=== PATIENT | male | born 1970 | race Hispanic/Latino ===

== ENCOUNTER 2024-03-17 23:46 | Inpatient (IN) | payer OTHER ==
[~2024-03-17] VITALS: Ht 172.7 cm; Wt 80.7 kg
[2024-03-18] VITALS (8 sets, daily range): BP systolic 139–156; BP diastolic 80–88; PULSE 71–95; RESP 18–22; TEMP 98.3–99; O2SAT 96–97
[2024-03-18 00:05] LABS: BASOPHILS # (AUTO) 0.03 K/uL (0.00-0.20); BASOPHILS % (AUTO) 0.4 % (0.0-5.0); EOSINOPHILS # (AUTO) 0.04 K/uL (0.00-0.70); EOSINOPHILS % (AUTO) 0.5 % (0.0-8.0); IMMATURE GRANULOCYTE ABSOLUTE 0.03 K/uL (0-1); LYMPHOCYTES % (AUTO) 11.3 % (21.0-51.0); MEAN CORPUSCULAR HGB CONC 35.4 g/dL (32.0-36.0); MEAN CORPUSCULAR VOLUME 87.6 fL (79-99); MONOCYTES # (AUTO) 0.4 K/uL (0.1-1.0); MONOCYTES % (AUTO) 4.1 % (3.0-13.0); NEUTROPHILS # (AUTO) 7.2 K/uL (1.8-7.7); NEUTROPHILS % (AUTO) 83.3 % (40.0-77.0); PLATELET COUNT (AUTO) 189 K/uL (130-400); RED BLOOD CELL COUNT(AUTO) 4.68 MIL/uL (4.50-6.20); RED CELL DISTRIBUTION WIDTH 12.5 % (11.0-15.5); WHITE BLOOD COUNT (AUTO) 8.6 K/uL (4.8-10.8)
[2024-03-18 00:18] LABS: CREATININE 1.2 mg/dL (0.5-1.3); POTASSIUM 3.6 mmol/L (3.5-5.1)
[2024-03-18 00:48] LABS: APPEARANCE,URINE CLEAR (CLEAR); BILIRUBIN,URINE NEGATIVE (NEGATIVE); COLOR,URINE LIGHT-YELLOW (YELLOW); GLUCOSE, URINE (UA) >=1000 mg/dL (NEGATIVE); KETONES,URINE 5 mg/dL (NEGATIVE); LEUKOCYTE ESTERASE ,URINE NEGATIVE Leu/uL (NEGATIVE); NITRATE,URINE NEGATIVE (NEGATIVE); OCCULT BLOOD,URINE LARGE (NEGATIVE); PROTEIN,URINE 20 mg/dL (NEGATIVE); UROBILINOGEN,URINE 0.2 mg/dL (0.2-1.0)
[2024-03-18 00:53] LABS: ADD UA MICROSCOPIC YES
[2024-03-18 00:55] LABS: MUCUS,URINE RARE LPF (None Seen)
[2024-03-18] MEDS: ONDANSETRON 4MG INJ IVP STA ×2 (01:05→01:43)
[2024-03-18] MEDS: FAMOTIDINE 20MG VIAL IV STA (01:05)
[2024-03-18] MEDS: 0.9%NACL 1000ML 1,000 ML IV ONE (01:06)
[2024-03-18] MEDS: acetaMINOPHEN 500 MG TABLET PO STA (01:06)
[2024-03-18] MEDS: morPHINE 4 MG SYG IVP STA (01:43)
[2024-03-18] MEDS ORDERED: acetaMINOPHEN 650 MG SUPPOSITORY RC PRN (03:30)
[2024-03-18] MEDS ORDERED: hydroMORPHone 1 MG INJ IVP PRN (03:30)
[2024-03-18] MEDS: traMADol HCL 50 MG TABLET PO PRN (03:47)
[2024-03-18] MEDS: LACTATED RINGERS 1000ML 1,000 ML IV SCH (03:47)
[2024-03-18] MEDS ORDERED: hydrALAZine 20MG/ML VIAL IV PRN (06:30)
[2024-03-18] MEDS ORDERED: doCUSate SODIUM 100 MG CAP PO PRN (06:30)
[2024-03-18] MEDS: INSULIN humuLIN R 100 UNIT/ML 3ML SQ SCH (06:45)
[2024-03-18] MEDS ORDERED: ENOXAPARIN SODIUM 30 MG/0.3 ML SQ SCH (09:00)
[2024-03-18] MEDS: PANTOPRAZOLE 40 MG/VIAL IVP SCH (10:48)
[2024-03-18] MEDS: hydroMORPHone 0.5 MG SYG (0.5MG/0.5ML) IVP PRN (10:55)
[2024-03-18] MEDS: tamSULOsin HCL 0.4 MG CAP.ER.24H PO ONE (21:38)
[2024-03-18] MEDS ORDERED: LACTULOSE 20 GM/30 ML UDCUP PO PRN (22:00)
[2024-03-18] MEDS ORDERED: IOHEXOL-350 75 ML VIAL IV ONE (22:25)
[2024-03-19 04:00] VITALS: BP 140/81; PULSE 92; RESP 20; TEMP 98.6
[2024-03-19 04:22] LABS: BASOPHILS # (AUTO) 0.01 K/uL (0.00-0.20); BASOPHILS % (AUTO) 0.1 % (0.0-5.0); EOSINOPHILS # (AUTO) 0.03 K/uL (0.00-0.70); EOSINOPHILS % (AUTO) 0.4 % (0.0-8.0); IMMATURE GRANULOCYTE ABSOLUTE 0.03 K/uL (0-1); LYMPHOCYTES # (AUTO) 0.8 K/uL (1.0-4.8); LYMPHOCYTES % (AUTO) 10.9 % (21.0-51.0); MEAN CORPUSCULAR HEMOGLOBIN 30.5 pg (27.0-33.0); MEAN CORPUSCULAR HGB CONC 34.6 g/dL (32.0-36.0); MEAN CORPUSCULAR VOLUME 88.2 fL (79-99); MONOCYTES # (AUTO) 0.9 K/uL (0.1-1.0); MONOCYTES % (AUTO) 12.1 % (3.0-13.0); NEUTROPHILS # (AUTO) 5.7 K/uL (1.8-7.7); NEUTROPHILS % (AUTO) 76.1 % (40.0-77.0); PLATELET COUNT (AUTO) 161 K/uL (130-400); RED BLOOD CELL COUNT(AUTO) 4.42 MIL/uL (4.50-6.20); RED CELL DISTRIBUTION WIDTH 12.4 % (11.0-15.5); WHITE BLOOD COUNT (AUTO) 7.5 K/uL (4.8-10.8)
[2024-03-19 04:36] LABS: CREATININE 1.5 mg/dL (0.5-1.3); PHOSPHORUS 2.8 mg/dL (2.5-4.9); POTASSIUM 3.9 mmol/L (3.5-5.1)
[2024-03-19 05:28] LABS: HEMOGLOBIN A1C 8.2 % (4.0-6.0)
[2024-03-19 08:00] VITALS: O2SAT 97
[2024-03-19 08:24] VITALS: BP 129/84; PULSE 98; RESP 16; TEMP 98.9
[2024-03-19 11:57] VITALS: BP 143/93; PULSE 77; RESP 16; TEMP 99.3
[2024-03-19] MEDS ORDERED: TAMS-1 PO (13:39)
[2024-03-19] MEDS: acetaMINOPHEN 325 MG TAB PO PRN (16:01)
[2024-03-19 16:41] VITALS: BP 160/96; PULSE 73; RESP 16; TEMP 98.2
== END 2024-03-19 17:05 | disposition home or self-care (01) | DRG 687 ==
LOC: EDH 23:46 → EDHIP 03-18 03:16 → 3AH 03-18 04:12
PROVIDERS: ADMIT Internal Medicine; ATTEND Internal Medicine
DX: C64.2 Malignant neoplasm of left kidney, except renal pelvis (principal); E87.1 Hypo-osmolality and hyponatremia; N17.9 Acute kidney failure, unspecified; R31.0 Gross hematuria; N28.89 Other specified disorders of kidney and ureter; E11.65 Type 2 diabetes mellitus with hyperglycemia; E86.0 Dehydration; E87.8 Other disorders of electrolyte and fluid balance, not elsewhere classified; I10 Essential (primary) hypertension; K59.00 Constipation, unspecified; D64.9 Anemia, unspecified
CPT/HCPCS: 36415; 71250; 74176; 74178; 76870; 80048; 81001; 82948; 83036; 83690; 83735; 84100; 85025; G0378; J1170; J1815; J2270; J2405; J2470; J3490; J7030; J7120; Q9967